=== PATIENT | female | born 1955 | race Caucasian/White ===

== ENCOUNTER 2024-03-16 05:34 | Day surgery (SDC) | payer MEDICARE ==
[2024-03-16] MEDS ORDERED: EPINEPHrine 1 MG/ML VIAL ONE (06:10)
[2024-03-16] MEDS ORDERED: Bupivacaine PF 0.5% 30 ML VIAL ONE (06:11)
[2024-03-16] MEDS ORDERED: Thrombin 5000 UNITS/5 ML VIAL ONE (06:11)
[2024-03-16] MEDS ORDERED: Sodium Chloride 0.9% 100 ML ONE ×2 (06:27→11:14)
[2024-03-16] MEDS ORDERED: CEFAZOLIN 2 GM VIAL ONE ×2 (06:27→11:14)
[2024-03-16] MEDS ORDERED: PROPOFOL 60 ML ONE (06:46)
[2024-03-16 06:47] LABS: Anion Gap 13 mmol/L (10-20); BUN (Urea Nitrogen) 9 mg/dL (9.8-20.1); Calc. Creatinine Clearance 0 mL/min (70-130); Calcium 9.4 mg/dL (7.8-10.44); Carbon Dioxide 23 mmol/L (23-31); Chloride 113 mmol/L (98-107); Estimated GFR 94; Glucose 89 mg/dL (80-115); Potassium 3.6 mmol/L (3.5-5.1); Sodium 145 mmol/L (136-145)
[2024-03-16] MEDS ORDERED: Fentanyl 250 MCG/5 ML VIAL ONE (06:47)
[2024-03-16] MEDS ORDERED: Rocuronium Bromide 10 MG/ML (10ML VIAL) ONE (06:50)
[2024-03-16] MEDS ORDERED: Lidocaine 2% PF 5 ML VIAL ONE (06:50)
[2024-03-16] MEDS ORDERED: MINERAL OIL/WHITE PETROLATUM 3.5 GM TUBE ONE (06:55)
[2024-03-16] MEDS ORDERED: Dexamethasone 4 mg/ml Vial ONE (07:23)
[2024-03-16] MEDS ORDERED: Ondansetron PF 4 MG/2 ML Vial ONE (07:23)
[2024-03-16] MEDS ORDERED: diphenhydrAMINE 50 MG/ML VIAL ONE (07:23)
[2024-03-16] MEDS ORDERED: SUGAMMADEX SODIUM 200 MG/2 ML VIAL ONE (07:32)
[2024-03-16] MEDS ORDERED: PROPOFOL 20 ML ONE (08:50)
[2024-03-16] MEDS ORDERED: fentaNYL 50 mcg/mL 1 mL Vial ONE (09:42)
[2024-03-16] MEDS ORDERED: HYDROmorphone 0.5 MG/0.5 ML SYRINGE ONE (09:42)
[2024-03-16] MEDS ORDERED: HYDROcodone/Acetaminophen 5/325 mg Tablet ONE (11:31)
== END 2024-03-16 12:21 | disposition home or self-care (01) ==
LOC: SDC 05:34
PROVIDERS: ATTEND Neurological Surgery
PROC: 01NB0ZZ Release Lumbar Nerve, Open Approach (ICD-10-PCS; principal; 2024-03-16)
PROC: 0QH004Z Insertion of Internal Fixation Device into Lumbar Vertebra, Open Approach (ICD-10-PCS; 2024-03-16)
PROC: 0SB20ZZ Excision of Lumbar Vertebral Disc, Open Approach (ICD-10-PCS; 2024-03-16)
DX: M54.16 Radiculopathy, lumbar region (principal); M48.061 Spinal stenosis, lumbar region without neurogenic claudication; M43.16 Spondylolisthesis, lumbar region; Z79.899 Other long term (current) drug therapy; Z91.040 Latex allergy status
CPT/HCPCS: 20930; 20936; 22612; 22840; 63012; 80048; C1713 ×2; C1889 ×2; J0171; J0665; J1100; J1170; J1200; J2001; J2405; J2704; J3010 ×2